=== PATIENT | female | born 1975 | race Caucasian/White ===

== ENCOUNTER 2017-09-22 17:55 | Emergency (ER) | payer OTHER ==
[~2017-09-22] VITALS: Ht 170.2 cm; Wt 108.9 kg
[~2017-09-22 17:55] MED LIST: GLIM2TAB PO; METF500T PO; PIOG15TA2 PO; PRON INH
[2017-09-22 18:08] VITALS: BP 108/71
--- NOTE | 2017-09-22 19:36 | NUR ---
PT TAKEN TO BED 3
--- NOTE | 2017-09-22 21:10 | NUR ---
42Y/F PRESENTS TO ER C/O ABD PAIN, HEADACHE, AND DIZZINESS X DAYS. PMH DM, ALLERGY TO PENICILLIN. PT STATES STATES SINCE YESTERDAY SHE HAS HAD SYMPTOMS, W/ NO VOMITING AT THIS TIME. ABD IS SOFT, ROUND, NON TENDER, ACTIVE BS X4. LBM TODAY, PT STATES SHE HAS IRREGULAR PERIODS AND DOES NOT KNOW LMP. HEADACHE 9/10, NON RADIATING. PT IS AA&OX4, PT IN BED WITH AT BEDSIDE.
[2017-09-22] MEDS ORDERED: NACL 0.9% 1,000 ML IV SCH (21:29)
[2017-09-22] MEDS ORDERED: FAMOTIDINE 20 MG/2 ML VIAL IVP ONE (21:30)
[2017-09-22] MEDS ORDERED: KETOROLAC 30 MG/ML VIAL IVP ONE (21:30)
[2017-09-22] MEDS ORDERED: ONDANSETRON 4 MG/2 ML VIAL IVP ONE (21:30)
[2017-09-22] MEDS ORDERED: METOCLOPRAMIDE 10 MG/2 ML INJ VIAL IVP ONE (21:30)
[2017-09-22 22:11] LABS: BASOPHILS # (AUTO) 0.1 K/uL (0.00-0.22); BASOPHILS % (AUTO) 1.9 % (0.0-2.0); EOSINOPHILS # (AUTO) 0.1 K/uL (0-0.4); EOSINOPHILS % (AUTO) 1.1 % (0.0-4.0); HEMOGLOBIN 15.8 g/dL (12.0-16.0); LYMPHOCYTES # (AUTO) 1.1 K/uL (2.5-16.5); LYMPHOCYTES % (AUTO) 18.7 % (20.5-51.1); MEAN CORPUSCULAR HEMOGLOBIN 30 pg (27-31); MEAN CORPUSCULAR HGB CONC 33 g/dL (33-37); MEAN CORPUSCULAR VOLUME 90 fL (80-94); MONOCYTES # (AUTO) 0.2 K/uL (0.8-1.0); MONOCYTES % (AUTO) 2.9 % (1.7-9.3); NEUTROPHILS # (AUTO) 4.2 K/uL (1.8-7.7); NEUTROPHILS % (AUTO) 75.4 % (42.2-75.2); PLATELET COUNT (AUTO) 151 K/uL (140-450); RED BLOOD CELL COUNT(AUTO) 5.34 MIL/uL (4.20-5.40); RED CELL DISTRIBUTION WIDTH 12.6 % (11.6-13.7); WHITE BLOOD COUNT (AUTO) 5.7 K/uL (4.8-10.8)
[2017-09-22 22:20] LABS: ANION GAP 9.9 (8-16); CARBON DIOXIDE 28.9 mmol/L (21-32); CREATININE 0.7 mg/dL (0.6-1.3); POTASSIUM 3.8 mmol/L (3.5-5.1)
[2017-09-22 22:27] LABS: ALBUMIN 3.5 g/dL (3.4-5.0); TOTAL BILIRUBIN 1.2 mg/dL (0.0-1.0)
[2017-09-22 22:40] LABS: APPEARANCE,URINE CLOUDY (CLEAR); BILIRUBIN,URINE NEGATIVE (NEGATIVE); BLOOD, URINE NEGATIVE (NEGATIVE); COLOR,URINE YELLOW (YELLOW); LEUKOCYTE ESTERASE ,URINE NEGATIVE (NEGATIVE); NITRITE, URINE NEGATIVE (NEGATIVE); PH,URINE 5.5 (5.0-9.0); UGLUCOSE 2+ (NEGATIVE)
[2017-09-22 22:48] LABS: RBC,URINE 0-5 (RARE) /HPF (0-5); WBC,URINE 0-5 (RARE) /HPF (0-5)
[2017-09-22 22:49] LABS: URINE AMORPHOUS URATE 4+ /HPF (None Seen)
[2017-09-22 23:25] VITALS: BP 122/73
--- NOTE | 2017-09-22 23:25 | NUR ---
Patient discharged with v/s stable. Written and verbal after care instructions given and explained. Patient alert, oriented and verbalized understanding of instructions. Ambulatory with steady gait. All questions addressed prior to discharge. ID band removed. Patient advised to follow up with PMD. Rx of reglan 10mg given. Patient educated on indication of medication including possible reaction and side effects. Opportunity to ask questions provided and answered.
== END 2017-09-22 23:25 | disposition home or self-care (01) ==
LOC: MED 17:55
DX: K31.84 Gastroparesis (principal); R19.7 Diarrhea, unspecified; R51 Headache
CPT/HCPCS: 36415; 74176; 80053; 81001; 81025; 82150; 83690; 84703; 85025; 96361; 96374; 96375; 99285; J1885; J2405; J2765; J3490

== ENCOUNTER 2017-10-26 16:50 | Emergency (ER) | payer OTHER ==
[~2017-10-26] VITALS: Ht 170.2 cm; Wt 115.3 kg
[2017-10-26 18:08] VITALS: BP 118/90
--- NOTE | 2017-10-26 18:13 | NUR ---
PATIENT TO OF
--- NOTE | 2017-10-26 18:34 | NUR ---
PATIENT PRESENTS TO ED WITH C/O VOMITING, DRY COUGH, HEADACHE /10 TODAY;PT STATES SHE FEELS DIZZY;HX OF DM, ASTHMA;RX OF METFORMIN, GLYBURIDE, ALBUTEROL .SKIN IS PINK/WARM/DRY; AAOX4 WITH EVEN AND STEADY GAIT;HR EVEN AND REGULAR;PATIENT POSITIONED FOR COMFORT;ER MD MADE AWARE OF PT STATUS.
--- NOTE | 2017-10-26 19:00 | NUR ---
GENO POWER EVALUATING PT.
--- NOTE | 2017-10-26 19:03 | NUR ---
Pt report given to BERNIE LOCKE. Transfer of care at this time.
[2017-10-26 19:39] VITALS: BP 151/93
--- NOTE | 2017-10-26 19:40 | NUR ---
Patient discharged with v/s stable. Written and verbal after care instructions given and explained. Patient alert, oriented and verbalized understanding of instructions. Ambulatory with steady gait. All questions addressed prior to discharge. ID band removed. Patient advised to follow up with PMD. Rx of dextromethorphan hydrobromide/promethazine hcl given. Patient educated on indication of medication including possible reaction and side effects. Opportunity to ask questions provided and answered.
== END 2017-10-26 19:39 | disposition home or self-care (01) ==
LOC: MED 16:50
DX: B34.9 Viral infection, unspecified (principal); J45.909 Unspecified asthma, uncomplicated; E11.9 Type 2 diabetes mellitus without complications; I10 Essential (primary) hypertension; Z88.0 Allergy status to penicillin
CPT/HCPCS: 81002; 81025; 99283

== ENCOUNTER 2018-01-04 07:55 | Emergency (ER) | payer OTHER ==
[~2018-01-04] VITALS: Ht 170.2 cm; Wt 118.4 kg
[2018-01-04 07:59] VITALS: BP 117/65
[2018-01-04] MEDS ORDERED: INSULIN REGULAR, HUMAN 100 UNIT/ML VIAL SUBQ ONE ×2 (08:05→08:45)
--- NOTE | 2018-01-04 08:06 | NUR ---
PT AMBULATED TO BED 3
--- NOTE | 2018-01-04 08:11 | NUR ---
42F BIB FAMILY C/O HIGH BLOOD SUGAR X 2 DAYS AND FRONTAL LOBE CHACON 07/26. HX: DM, ASTHMA. PT STATES WAS SEEN 2 DAYS AGO FOR SAME ISSUE, BUT BLOOD SUGAR REMAINS IN THE 200'S. PT BS 235. SKIN INTACT. NO S/S OF RESPIRATORY DISTRESS. CMS INTACT. ER MD BERNAL MADE AWARE OF PT CONDITION. PT NEEDS MET AT THIS TIME. WILL CONTINUE TO MONITOR. FALL AND SAFETY PRECAUTIONS IN PLACE.
--- NOTE | 2018-01-04 08:14 | NUR ---
DR BERNAL EVALUATING PT AT BEDSIDE
--- NOTE | 2018-01-04 08:56 | NUR ---
Patient appears to be resting comfortably in bed. BP 123/68; DENIES HEADACHE AT THIS TIME. Respirations even and unlabored.WILL CONTINUE TO MONITOR.
[2018-01-04] MEDS ORDERED: NACL 0.9% 1,000 ML IV ONE (10:05)
[2018-01-04] MEDS ORDERED: INSULIN REGULAR, HUMAN 100 UNIT/ML VIAL IVP ONE ×2 (10:05→11:05)
--- NOTE | 2018-01-04 11:04 | NUR ---
PT C/O HEADACHE 03/26. NOTIFIED DR BERNAL.
[2018-01-04] MEDS ORDERED: KETOROLAC 30 MG/ML VIAL IVP ONE (11:05)
[2018-01-04 12:27] VITALS: BP 120/74
--- NOTE | 2018-01-04 12:27 | NUR ---
Patient discharged by Dr. Brooks with v/s stable. Written and verbal after care instructions given and explained. Patient verbalized understanding. Ambulatory with steady gait. All questions addressed prior to discharge. Advised to follow up with PMD. Addendum: 01/12/18 at 0747 by [facility] Patient discharged with v/s stable. Written and verbal after care instructions given and explained. Patient alert, oriented and verbalized understanding of instructions. Ambulatory with steady gait. All questions addressed prior to discharge. ID band removed. Patient advised to follow up with PMD. Rx of Novolin insulin 70/30, 14 Units subQ in the a.m. and Lantus insulin 30 Units subQ p.m. given. Patient educated on indication of medication including possible reaction and side effects. Opportunity to ask questions provided and answered.
== END 2018-01-04 12:27 | disposition home or self-care (01) ==
LOC: MED 07:55
DX: E11.9 Type 2 diabetes mellitus without complications (principal); J45.909 Unspecified asthma, uncomplicated; I10 Essential (primary) hypertension; Z79.899 Other long term (current) drug therapy; Z88.0 Allergy status to penicillin
CPT/HCPCS: 81002; 81025; 82948; 96361; 96374; 99284; J1815; J1885; J7030

== ENCOUNTER 2018-01-10 01:10 | Emergency (ER) | payer OTHER ==
[~2018-01-10] VITALS: Ht 170.2 cm; Wt 122.5 kg
[2018-01-10 01:19] VITALS: BP 134/87
--- NOTE | 2018-01-10 02:08 | NUR ---
PATIENT LEFT WITHOUT BEING SEEN BY DR. AUGUSTIN. NO FURTHER CARE PROVIDED FOR PATIENT.
[2018-01-10 02:12] VITALS: BP 134/87
== END 2018-01-10 02:08 | disposition left against medical advice (07) ==
LOC: MED 01:10
DX: R73.9 Hyperglycemia, unspecified (principal); Z53.21 Procedure and treatment not carried out due to patient leaving prior to being seen by health care provider
CPT/HCPCS: 82948